=== PATIENT | male | born 1980 | race Caucasian/White ===

== ENCOUNTER 2020-03-21 02:55 | Observation (INO) | payer BC ==
[2020-03-21] MEDS ORDERED: Morphine 4 MG/ML VIAL ONE (03:12)
[2020-03-21] MEDS ORDERED: Ondansetron PF 4 MG/2 ML Vial ONE ×2 (03:13→10:28)
[2020-03-21] MEDS ORDERED: Fentanyl 100 MCG/2 ML VIAL ONE (03:48)
[2020-03-21] MEDS ORDERED: Dextrose 5% in Water 1,000 ML IV PRN (04:04)
[2020-03-21] MEDS ORDERED: Ondansetron PF 4 MG/2 ML Vial IVP PRN ×2 (04:04→10:33)
[2020-03-21] MEDS ORDERED: Dextrose 50% Abboject 50 ML SYRINGE SLOW IVP PRN (04:04)
[2020-03-21] MEDS ORDERED: traMADol HCl 50 MG TAB PO PRN (04:07)
[2020-03-21] MEDS ORDERED: Morphine 2 MG/ML VIAL SLOW IVP PRN (04:07)
[2020-03-21 04:09] LABS: #Basophils 0.1 thou/uL (0.0-0.2); #Eosinphils 0.1 thou/uL (0.0-0.7); #Lymphocytes 2.4 thou/uL (1.20-3.40); #Monocytes 0.8 thou/uL (0.11-0.59); #Neutrophils 7.2 thou/uL (1.40-6.50); %Basophils 0.8 % (0.0-1.0); %Eosinophils 1.4 % (0.0-10.0); %Lymphocytes 22.4 % (21.0-51.0); %Monocytes 7.3 % (0.0-10.0); %Neutrophils 68.1 % (42.0-75.0); Hemoglobin 15.5 g/dL (14.0-18.0); Mean Corpuscular HGB CONC 34.6 g/dL (32.0-36.0); Mean Corpuscular Hemoglobin 32.2 pg (27.0-31.0); Mean Corpuscular Volume 93.1 fL (78.0-98.0); Mean Platelet Volume 7.5 fL (7.4-10.4); Platelet Count 210 thou/uL (130-400); RBC Distribution Width 12.2 % (11.5-14.5); Red Blood Cell (RBC) Count 4.82 mill/uL (4.70-6.10); White Blood Cell (WBC) Count 10.5 thou/uL (4.8-10.8)
[2020-03-21 04:31] LABS: ALT (SGPT) 30 U/L (8-55); AST (SGOT) 24 U/L (5-34); Albumin 4.2 g/dL (3.5-5.0); Alkaline Phosphatase 67 U/L (40-110); Anion Gap 14 mmol/L (10-20); BUN (Urea Nitrogen) 9 mg/dL (8.9-20.6); Bilirubin, Total 0.2 mg/dL (0.2-1.2); Calc. Creatinine Clearance 0 mL/min (70-130); Calcium 8.7 mg/dL (7.8-10.44); Carbon Dioxide 25 mmol/L (22-29); Chloride 103 mmol/L (98-107); Globulin 2.7 g/dL (2.4-3.5); Glucose 112 mg/dL (70-105); Potassium 3.8 mmol/L (3.5-5.1); Protein, Total 6.9 g/dL (6.0-8.3); Sodium 138 mmol/L (136-145)
--- NOTE | 2020-03-21 05:27 | HP ---
TRAUMA ATTENDING: Dr. Manfred Reardon. CONSULTING ORTHOPEDIST: Dr. Russ Torres. HISTORY OF PRESENT ILLNESS: Mr. Cordoba is a 40-year-old male with no significant past medical history, presenting to the emergency department today via EMS for leg injury. The patient states that he tripped, twisted his leg on pile of bricks, he is running, falling, isolated injury to the right leg. He has obvious deformity. He has spiral fracture of the tibia, he has been placed in a splint. He did have a brief hypoxemic event with some Fentanyl during the reduction. This has since resolved. The mental status is back to normal. He is hemodynamically stable. He denies any chest pain. Denies any nausea or vomiting. No shortness of air. No neck pain. No striking of his head. No loss of consciousness. The patient has alcohol on board and drinks daily. However, he denies that he has never withdrawn from alcohol. Labs are pending. REVIEW OF SYSTEMS: Pertinent positive and negative per HPI, otherwise regarded as negative. PAST MEDICAL HISTORY: Tobacco abuse. PAST SURGICAL HISTORY: Vasectomy. MEDICATIONS: Denies. ALLERGIES: DENIES. SOCIAL HISTORY: The patient is x3. Lives in [place]. Has one adult daughter. Chews tobacco. Former smoker. Drinks beers 5/7 days, but states he has never withdrawn from alcohol in the past. FAMILY HISTORY: Unknown. PHYSICAL EXAMINATION: VITAL SIGNS: Blood pressure is 102/71, heart rate is 98, respiratory rate is 12. He is saturating 99% on room air now. Temperature please see the chart. GENERAL: A 40-year-old male appears clinically intoxicated on alcohol, in no acute distress. HEENT: Normocephalic and atraumatic. Trachea is midline. No JVD is appreciated. No trauma about the head. No pain to palpation of the cervical spine. RESPIRATORY: Equal rise and fall. Bilateral breath sounds. Clear to auscultation in upper and lower lobes bilaterally. CARDIOVASCULAR: Regular rate and rhythm. ABDOMEN: Soft and nontender. PELVIS: Stable. MUSCULOSKELETAL: He does have deformity noted to the right lower extremity. This is in a splint. He has good CMS including sensation, pulses. He does have some swelling from the knee to the ankle of the right leg. The left leg is atraumatic. Upper extremities are atraumatic. SKIN: [place], warm, and dry. NEUROLOGIC: Alert and oriented with a GCS of 15. Right now, however, does slur his words at times. PSYCHIATRIC: Normal mood and affect. LABORATORY DATA: None returned yet. An x-ray of the ankle shows a spiral fracture of the tibia. ASSESSMENT AND PLAN: 1. Spiral fracture of the tibia. 2. Acute traumatic pain. 3. Alcohol intoxication. 4. Tobacco abuse. PLAN: 1. We will admit the patient to the surgery wells. 2. Orthopedics has been consulted, appreciate assistance. 3. The patient has been splinted. 4. Obtain x-ray of the knee, concern for Maisonneuve fracture. 5. Pain control as needed. Watching SpO2. 6. Oxygen as needed to maintain SpO2 greater than 90%, however is on room air at this time. 7. Pepcid 20 mg b.i.d. 8. We will provide Serax to prevent alcohol withdrawals given daily drinking. 9. N.p.o. now except for medications. 10. LR at 120 per hour for two bags. 11. Repeat labs in the morning. We will follow up on the labs from today. 12. Updated the patient at bedside and answered all questions. 13. Full code. 14. Access peripheral IV. 15. Activity is going to be nonweightbearing on the right lower extremity as well as fall precautions given his alcohol intoxication. 16. Prophylaxis will be SCD on the left and famotidine. 17. Disposition is surgery wells. 18. No family to update and coordinate care with emergency department staff as well as the emergency department physician. Job ID: [id number]
[2020-03-21] MEDS: Acetaminophen 500 MG TAB PO SCH ×2 (06:25→12:52)
[2020-03-21] MEDS: Lactated Ringer's 1,000 ML IV SCH ×2 (06:25→15:54)
[2020-03-21] MEDS: Ibuprofen 200 MG TAB PO SCH ×2 (06:25→13:41)
[2020-03-21] MEDS: traMADol HCl 50 MG TAB PO SCH ×2 (06:26→12:53)
[2020-03-21 06:35] VITALS: BMI 29.1
--- NOTE | 2020-03-21 08:16 | RAD ---
2 views of the right ankle: 03/21/2020 COMPARISON: None HISTORY: Injury, trauma, pain FINDINGS: There is an obliquely oriented fracture of the distal right tibial shaft with 1.3 cm of lat eral displacement. There is mild posterior displacement and posterior angulation seen on the lateral view. In addition, there appears to be a nondisplaced posterior malleolus fracture on the lateral examinati on. IMPRESSION: Right tibial shaft fracture. Posterior malleolus fracture. Recommend dedicated 3 view exa mination of the right ankle.
--- NOTE | 2020-03-21 08:17 | RAD ---
4 views right knee: 03/21/2020 COMPARISON: None HISTORY: Trauma, pain FINDINGS: There is a comminuted obliquely oriented fracture of the proximal right fibula at the base of the fibular head. A small knee joint effusion is noted. No additional fractures appreciated. IMPRESSION: Comminuted obliquely oriented displaced proximal right fibular fracture as above.
[2020-03-21] MEDS ORDERED: Famotidine 20 MG TAB PO SCH (09:00)
[2020-03-21] MEDS ORDERED: HYDROmorphone 2 MG/ML VIAL ONE (09:22)
[2020-03-21 09:28] LABS: SARS-CoV-2 NAA Rapid Test Not Detected (NotDetected)
[2020-03-21] MEDS ORDERED: Fentanyl 250 MCG/5 ML VIAL ONE (09:47)
[2020-03-21] MEDS ORDERED: Bupivacaine PF 0.5% 30 ML VIAL ONE (10:08)
[2020-03-21] MEDS ORDERED: EPINEPHrine 1 MG/ML AMP ONE (10:08)
[2020-03-21] MEDS ORDERED: Glycopyrrolate 0.2 MG/ML 5 ML SYRINGE ONE (10:28)
[2020-03-21] MEDS ORDERED: Lidocaine 1% PF 5 ML VIAL ONE (10:28)
[2020-03-21] MEDS ORDERED: Rocuronium Bromide 10 MG/ML (10ML VIAL) ONE (10:28)
[2020-03-21] MEDS ORDERED: PROPOFOL 200 MG/20 ML VIAL ONE (10:28)
[2020-03-21] MEDS ORDERED: Fentanyl 100 MCG/2 ML VIAL SLOW IVP PRN (10:33)
[2020-03-21] MEDS ORDERED: Cepastat Lozenges 1 LOZ PO PRN (10:33)
[2020-03-21] MEDS ORDERED: Ondansetron ODT 4 MG TAB PO PRN (10:33)
[2020-03-21] MEDS ORDERED: Acetaminophen 325 MG TAB PO PRN (10:33)
[2020-03-21] MEDS ORDERED: Milk Of Magnesia 30 ML UDCUP PO PRN (10:33)
[2020-03-21] MEDS ORDERED: Bisacodyl 10 MG SUPP PR PRN (10:33)
[2020-03-21] MEDS ORDERED: HYDROcodone/Acetaminophen 10/325 mg Tablet PO PRN ×2 (10:36)
--- NOTE | 2020-03-21 11:13 | CON ---
DATE OF CONSULTATION: 03/21/2020 HISTORY OF PRESENT ILLNESS: The patient is a 40-year-old male who was at home. He tripped over some bricks and twisted his right lower extremity, had immediate pain and deformity in the right leg. The patient was brought to the emergency room. X-rays revealed a displaced spiral fracture of the right distal tibial shaft with a fracture of the proximal fibula. He has no neurologic complaints in the right lower extremity. No other complaints elsewhere. PAST MEDICAL HISTORY/MEDICAL ILLNESSES: None. CURRENT MEDICATIONS: None. ALLERGIES: NONE. PAST SURGICAL HISTORY: Vasectomy. PHYSICAL EXAMINATION: The right lower extremity has some swelling and some early bruising in the right lateral knee and leg region as well as the distal leg. The patient has good peripheral pulses. He is able to flex and extend his toes well. LABORATORY DATA: X-rays of the right tibia and fibula shows a spiral displaced fracture of the right distal tibial shaft with a fracture of the proximal fibula. PLAN: The patient will require open reduction and internal fixation of the right tibia, I have planned on using the plate and screws. Potential risks with the condition of surgery include, but are not limited to infection, bleeding, pain, damage to blood vessels or nerves, nonunion, malunion, the patient may require additional surgery, DVT, and PE formation. The patient's questions were answered and he agreed to the procedure. Job ID: [id number]
[2020-03-21] MEDS ORDERED: Ketorolac Tromethamine 30 MG/ML VIAL IVP SCH (12:00)
--- NOTE | 2020-03-21 12:21 | OP ---
DATE OF PROCEDURE: 03/21/2020 PREOPERATIVE DIAGNOSIS: Displaced right distal tibial shaft fracture with fracture of the proximal fibula. POSTOPERATIVE DIAGNOSIS: Displaced right distal tibial shaft fracture with fracture of the proximal fibula. PROCEDURE PERFORMED: Open reduction and internal fixation of right distal tibial shaft. ANESTHESIA: General. DESCRIPTION OF PROCEDURE: The patient was given preoperative IV antibiotics, taken to the operating room, placed in supine position. Satisfactory general anesthesia was performed. The right lower extremity was sterilely prepped and draped in usual fashion. After exsanguination, tourniquet at the right thigh was raised to 250 mmHg. A longitudinal incision was made just lateral to the crest of the tibia in the junction of the middle and distal third. Incision was approximately 4-1/2 inches in length. Blunt and sharp dissection was made down to the crest of the tibia. Periosteal elevation was performed on the anterolateral aspect as the anterior compartment muscles were retracted out of the way. The spiral fracture was reduced, held reduced with a bone clamp, and initially internally fixed with two 3.5 cortical screws in a lag fashion. A 7-hole [employer] LCP locking plate was then placed on the lateral aspect of the distal tibial shaft and initially was internally fixed with a 3.5 cortical screw on both proximal and distal to the fracture and then 3 additional 3.5 locking screws both proximal and distal. The 2 holes in the middle of the plate were left open since they were directly over the fracture and the previous lag screws. C-arm was used to verify good alignment of the distal tibial shaft fracture and proper placement of the plate and screws. The wound was then copiously irrigated with antibiotic solution. It was closed using #1 Vicryl to close the fascia over the plate and bone and then 0 Vicryl to close the fat and subcutaneous tissue, and skin was closed with skin sneha. 20 mL of 0.5% Marcaine with epinephrine was used for postoperative analgesia. Sterile dressing was applied. Tourniquet was released. The patient was placed in a boot. He was awakened, extubated, and transferred to recovery room in stable condition. ESTIMATED BLOOD LOSS: 20 mL. COMPLICATIONS: None. TOURNIQUET TIME: 30 minutes. Job ID: [id number]
--- NOTE | 2020-03-21 12:35 | RAD ---
2 VIEWS RIGHT FORELEG: Date: 03/21/2020 PROVIDED CLINICAL HISTORY: Postop. FINDINGS: Comparison with 03/21/2020. Spot fluoroscopic frontal and lateral views of a portion of the right foreleg were performed during t he course of open reduction and internal fixation of tibial shaft fracture. IMPRESSION: As above. POS: JONATAN
[2020-03-21] MEDS ORDERED: Oxazepam 10 MG CAP PO SCH (13:00)
--- NOTE | 2020-03-21 14:48 | PRG ---
DATE OF SERVICE: 03/21/2020 SUBJECTIVE: [place] admitted early this morning, status post fall with a Maisonneuve fracture. He is now seen in the PACU. Clinically, he is much more sober, alert and oriented. The patient came to the procedure quite well. He is in a knee immobilizer. He will be seen by PT and OT today and will be admitted to the surgery wells. Remains hemodynamically stable. OBJECTIVE: VITAL SIGNS: Temperature is 98.8, blood pressure 108/70, heart rate 75, breathing 16 times per minute, 97% on room air. GENERAL: A 40-year-old male, seen in no acute distress. Nontoxic. RESPIRATORY: Equal rise and fall. MUSCULOSKELETAL: He has a boot postop to the right lower extremity. Pain is well controlled. PSYCH: Normal mood and affect. NEURO: Alert and oriented to person, place, time, and event. GCS is 15. LABORATORY DATA: White blood cell count is 10.5, platelets 210, hemoglobin and hematocrit 15.5 and 44.9 respectively. Sodium is 138, potassium 3.8, chloride is 103, CO2 is 25, BUN is 9, creatinine 1.03. AST and ALT 24 and 30 respectively. COVID is negative. ASSESSMENT AND PLAN: 1. Right Maisonneuve fracture status post open reduction and internal fixation. 2. Alcohol intoxication, resolved. 3. Acute traumatic pain. PLAN: Admit to the surgery wells. Continue supportive care. Start a diet. Transition to oral medicines. Order PT, OT; train for crutches; and likely discharge in the morning, coordinated with Orthopedic Surgery. Job ID: [id number]
[2020-03-21 17:16] VITALS: BP 110/75; TEMP 98.4
[2020-03-21] MEDS ORDERED: CEFAZOLIN 2 GM in Premix Bag 1 BAG IVPB SCH (18:00)
[2020-03-21] MEDS ORDERED: Senokot S 8.6-50 MG TAB PO SCH (21:00)
[2020-03-21] MEDS ORDERED: Aspirin 325 MG TAB PO SCH (21:00)
[2020-03-22] MEDS ORDERED: FLU VACC QS2020-21(6MOS UP)/PF 60 MCG/0.5 ML SYRINGE IM ONE (09:00)
[2020-03-22] MEDS ORDERED: Multivitamin W/ Minerals 1 TAB PO SCH (09:00)
[2020-03-22] MEDS ORDERED: Prevnar 13-Val Conj/PF 0.5 ML SYRINGE IM ONE (09:00)
--- NOTE | 2020-03-22 20:24 | DIS ---
DATE OF ADMISSION: 03/21/2020 DATE OF DISCHARGE: 03/21/2020 This is Mak Whitaker PA-C dictating a report for Manfred Reardon MD. CONSULTING PHYSICIAN: Russ Torres MD. ADMITTING DIAGNOSES: 1. Fall. 2. Alcohol intoxication. 3. Maisonneuve fracture of the right leg. DISCHARGE DIAGNOSES: 1. Maisonneuve fracture right leg, status post repair. 2. Alcohol intoxication, resolved. 3. Acute traumatic pain. HOSPITAL COURSE: The patient was admitted to the emergency department and found to have above injuries. Orthopedics was consulted and recommended admission and operative repair. The patient was admitted to the surgery wells under observation status, underwent operative repair, tolerated the procedure well, worked with PT postoperatively. Pain was controlled. Mental status completely cleared up, intoxication resolved. He remained hemodynamically stable. Plan was to do 3 doses of antibiotics and then discharge in the morning. However, patient was insistent on leaving. The patient was discussed that we would not be able to give all of his antibiotics IV, he understood this, understood the risk of the same, but still wanted to leave. Therefore, the patient was given prescriptions. He was told to follow up with Orthopedics and given return precautions and he was able to leave AMA. MEDICATIONS: Medications were written: 1. Tramadol 50 mg every 6 hours as needed with no refills. 2. Continue taking Tylenol 1000 mg every 6 hours. 3. Ibuprofen 400 mg every 6 hours. 4. Gabapentin 300 mg three times daily as needed. 5. Keflex 500 mg t.i.d. for an additional 2 days. 6. Follow up with PCP as needed. 7. Follow up with orthopedics as needed. 8. Please see progress note dated today for physical exam. 9. The patient was ambulatory on crutches. date of discharge. 10. Answered all questions at bedside, coordinated with the bedside RN. Patient understands this is against medical advice and did sign the same. Greater than 30 minutes was taken in discharge planning of this patient. Job ID: [id number]
== END 2020-03-21 18:00 | disposition home or self-care (01) ==
LOC: ERS 02:55 → SURG A 06:13
PROVIDERS: ADMIT Specialist; ATTEND Specialist
PROC: 0QSG04Z Reposition Right Tibia with Internal Fixation Device, Open Approach (ICD-10-PCS; principal; 2020-03-21)
DX: S82.241A Displaced spiral fracture of shaft of right tibia, initial encounter for closed fracture (principal); S82.861A Displaced Maisonneuve's fracture of right leg, initial encounter for closed fracture; F17.220 Nicotine dependence, chewing tobacco, uncomplicated; G89.11 Acute pain due to trauma; F10.120 Alcohol abuse with intoxication, uncomplicated; F41.9 Anxiety disorder, unspecified; Z53.29 Procedure and treatment not carried out because of patient's decision for other reasons; Z20.822 Contact with and (suspected) exposure to COVID-19; X50.1XXA Overexertion from prolonged static or awkward postures, initial encounter
CPT/HCPCS: 29105; 36415; 76000; 80053; 85025; 93005; 96365; 96374; 96375; 96376; C1713; G0378; G0390; J0171; J0690; J1170; J2270; J2405; J2704; J3010; S0020; U0002